=== PATIENT | male | born 1965 | race Hispanic/Latino ===

== ENCOUNTER 2024-02-21 14:21 | Emergency (ER) | payer BC ==
[~2024-02-21] VITALS: Ht 157.5 cm; Wt 81.6 kg
[2024-02-21] MEDS ORDERED: KETO10TA2 PO (16:16)
[2024-02-21] MEDS ORDERED: CYCL10TA16 PO (16:16)
[2024-02-21] MEDS: ORPHENADRINE 60MG/2ML IM ONE (16:21)
[2024-02-21] MEDS: ketOROlac 30MG VIAL (30MG/ML) IM ONE (16:22)
[2024-02-21] MEDS: TRIAMCINOLONE ACETONIDE 40 MG/ML 1ML VIAL IM ONE (16:22)
[2024-02-21 16:42] VITALS: BP 142/68; PULSE 80; RESP 16; TEMP 98; O2SAT 96
== END 2024-02-21 16:44 | disposition home or self-care (01) ==
LOC: EDH 14:21
DX: S16.1XXA Strain of muscle, fascia and tendon at neck level, initial encounter (principal); G44.209 Tension-type headache, unspecified, not intractable; I10 Essential (primary) hypertension; X58.XXXA Exposure to other specified factors, initial encounter; Y93.89 Activity, other specified; Y92.89 Other specified places as the place of occurrence of the external cause; Y99.8 Other external cause status
CPT/HCPCS: 99285; 70450; 72125; 96372 ×3; J3301; J1885; J2360